=== PATIENT | male | born 1995 | race American Indian/Alaskan Native ===

== ENCOUNTER 2018-01-11 07:38 | Outpatient (CLI) | payer BC ==
--- NOTE | 2018-01-11 11:45 | Cat Scan Report ---
CT ANGIO ABD/FEMORAL ABD AORTA: HISTORY: Arteriovenous malformation, hereditary lymphedema, venous insufficiency. TECHNIQUE: Helical CT imaging with 1.25mm reconstructions following IV contrast. Sagittal and Coronal 2D reformatted images. 3 dimensional volume rendering technique. Stenosis was measured using NASCET criteria. COMPARISON: none. FINDINGS: ABDOMINAL AORTA: Widely patent with no significant disease. Less than 20% stenosis. The celiac axis, SMA, MARY and bilateral single renal arteries are widely patent with less than 20% stenosis. COMMON ILIAC ARTERIES: Less than 20% stenosis. EXTERNAL ILIAC ARTERIES: Less than 20% stenosis. INTERNAL ILIAC ARTERIES: Less than 20% stenosis. RIGHT LOWER EXTREMITY: There is diffuse subcutaneous edema throughout the right lower extremity. The femoral artery, popliteal artery and arterial structures distal to the knee are widely patent with less than 20% stenosis. LEFT LOWER EXTREMITY: Less than 20% stenosis throughout. IMPRESSION: Normal CTA of the abdominal aorta and bilateral femoral runoff. No arterial abnormality is detected. Diffuse subcutaneous edema throughout the right lower extremity.
== END 2018-01-11 07:39 | disposition home or self-care (01) ==
LOC: EDSEX 07:38 → CT 07:38
PROVIDERS: ATTEND Radiology Diagnostic Radiology
DX: I87.2 Venous insufficiency (chronic) (peripheral) (principal); Q27.30 Arteriovenous malformation, site unspecified; Q82.8 Other specified congenital malformations of skin; Q82.0 Hereditary lymphedema; Z72.0 Tobacco use
CPT/HCPCS: 75635; Q9967

== ENCOUNTER 2018-02-17 08:36 | Day surgery (SDC) | payer BC ==
[~2018-02-17 08:36] MED LIST: ANCEF/STERILE WATER 2 GM/20 ML 2 GM/20 ML SYRINGE IV NR; NACL 0.9% 1000 ML 1,000 ML IV SCH
[2018-02-17 09:22] LABS: Basophils % (Auto) 0.4 % (0.0-1.8); Eosinophils # (Auto) 0.2 K/mm3 (0.0-0.4); Eosinophils % (Auto) 2.5 % (0.0-4.3); Hematocrit 44.4 % (35.5-45.6); Hemoglobin 15.2 gm/dl (11.8-15.2); Lymphocytes # (Auto) 2.1 K/mm3 (1.2-5.4); Lymphocytes % (Auto) 25.6 % (13.4-35.0); Mean Corpuscular HGB Conc 34 % (32-34); Mean Corpuscular Hemoglobin 32 pg (28-32); Mean Corpuscular Volume 93 fl (84-94); Monocytes # (Auto) 0.8 K/mm3 (0.0-0.8); Monocytes % (Auto) 9.6 % (0.0-7.3); Platelet Count 204 K/mm3 (140-440); Red Blood Count 4.76 M/mm3 (3.65-5.03)
[2018-02-17 09:34] LABS: BUN/Creatinine Ratio 18; Blood Urea Nitrogen 16 mg/dL (9-20); Calcium 8.6 mg/dL (8.4-10.2); Hemolysis Index 38
[2018-02-17 09:43] LABS: Partial Thromboplastin Time 30.5 Sec. (24.2-36.6)
[2018-02-17] MEDS ORDERED: HEPARIN/NS 5000 UNIT/500ML(CATH LAB) 1,000 ML IR ONE (10:45)
[2018-02-17] MEDS ORDERED: SUBLIMAZE ONE (10:45)
[2018-02-17] MEDS ORDERED: HEPARIN 10,000 UNITS/10 ML ONE (10:45)
[2018-02-17] MEDS ORDERED: VERSED ONE (10:45)
[2018-02-17] MEDS ORDERED: NACL 0.9% 500 ML 500 ML ONE (10:47)
[2018-02-17] MEDS: XYLOCAINE 2% INFILTRATI ONE ×2 (11:03→11:10)
--- NOTE | 2018-02-17 11:27 | Short Stay Summary ---
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 H&P: obtained from office - Allergies and Medications Current Medications: Allergies No Known Allergies Allergy (Verified 02/15/18 15:56) Home Medications Medication Instructions Recorded Confirmed Last Taken Type No Known Home Medications [No 02/17/18 02/17/18 Unknown History Reported Home Medications] Active Medications Cefazolin Sodium (Ancef/Sterile Water 2 Gm/20 Ml) 2 gm in 20 mls @ 80 mls/hr IV PREOP NR; Protocol Stop: 02/17/18 23:00 Sodium Chloride (Nacl 0.9% 1000 Ml) 1,000 mls @ 42 mls/hr IV DIRECT DEEP - Brief post op/procedure progress note Date of procedure: 02/17/18 Pre-op diagnosis: asymmetric right leg swelling with hypervascular mass in right groin Post-op diagnosis: same Procedure: Right lower extremity angiography, right lower extremity venography Anesthesia: local Surgeon: NIKOLAI KLEIN Estimated blood loss: none Pathology: none Condition: stable - Disposition Condition at discharge: Good Disposition: DC-[id number] TO HOME OR SELFCARE Short Stay Discharge Plan Activity: advance as tolerated Weight Bearing Status: Weight Bear as Tolerated Diet: regular Wound: keep clean and dry, per your surgeon's advice Follow up with: PRIMARY CAREMD [Primary Care Provider] - 7 Days
--- NOTE | 2018-02-17 11:32 | Operative Report ---
Operative Report Operative Report: Exam: Right lower extremity angiography, right lower extremity venography Clinical indication: Patient with hypervascular mass in his right groin causing extrinsic compression of the his venous system and asymmetric right leg swelling Date: 02/17/2018 Procedure: Following an explanation of the risks, benefits and alternatives; written informed consent was obtained. The patient was brought to the injury graphic suite and placed in supine position on the examination table. Initial ultrasound evaluation of his left groin demonstrated a patent left common femoral artery. The patient's left groin was prepped and draped in the usual sterile fashion. 1% lidocaine was used for anesthesia Under ultrasound guidance, the left common femoral artery was cannulated with a 7 cm 21-gauge needle. A 0.018 guidewire was advanced centrally. The needle was removed and a micro-sheath placed. The 0.018 guidewire was exchanged for a 0.035 guidewire and the micro-sheath exchanged for a 5 Guinean vascular sheath. 5 Guinean Omni flush catheter was advanced over the guidewire to the distal abdominal aorta. Angiography was performed for anatomic localization. The aorta, bilateral common iliac and bilateral external iliac arteries are widely patent. The bifurcation was crossed using the Omni flush catheter and the Omni flush catheter advanced into the right external iliac artery. Angiography was performed at multiple obliquities in the region of interest in the right groin. The superficial femoral artery and profunda are normal in appearance. No feeding vessels to the presumed arterial venous malformation in the right groin or then applied. The 0.035 guidewire was advanced through the Omni flush catheter and Omni flush catheter removed. Attention was then turned to the venous system. Ultrasound evaluation of the left groin and proximal left leg demonstrated a patent left femoral vein. Patient's left groin proximal leg were prepped and draped in the usual sterile fashion. 1% lidocaine was used for anesthesia. Under ultrasound guidance, a 7 cm 18-gauge needle was advanced into the proximal left femoral vein. A 0.035 guidewire was advanced centrally. The needle was removed and a 5 Guinean sheath placed over the guidewire. A 12 mm occlusion with balloon was then placed over the guidewire into the right external iliac vein. Venography was performed however, the occlusion balloon was insufficiently sized and 5 Guinean sheath had to be upsized to a 7 Guinean sheath with the placement of a 14 mm occlusion balloon. Additional venography was performed with reflux views into the common femoral vein and femoral vein proximally and mid. Additionally, the deep femoral vein was also visualized. There is no connection to the presumed arterial venous malformation identified. At this point, the venous sheath was removed and hemostasis achieved using manual compression and a sterile compression dressing was applied. The arterial sheath was removed and hemostasis achieved using an Angio-Seal arterial closure device. A sterile compression dressing was applied. The patient tolerated the procedure well. There were no immediate post procedure complications. Conscious sedation was performed under the guidance of radiologic nursing. Continuous cardiopulmonary monitoring was utilized. Impression: 1) Right lower extremity arterial angiography demonstrating no communication with the presumed arterial venous malformation in the patient's right groin. 2) Right lower extremity venography demonstrating no communication with the presumed arterial venous malformation in the patient's left groin. 3) The patient will need further evaluation with an MRI of his pelvis and proximal right leg.
[2018-02-17] MEDS ORDERED: PERCOCET 5/325 PO ONE (12:42)
[2018-02-17 14:29] VITALS: BP 101/41
== END 2018-02-17 14:15 | disposition home or self-care (01) ==
LOC: CATHLABREC 08:36
PROVIDERS: ATTEND Radiology Diagnostic Radiology
DX: I87.2 Venous insufficiency (chronic) (peripheral) (principal); F17.210 Nicotine dependence, cigarettes, uncomplicated; Z79.01 Long term (current) use of anticoagulants
CPT/HCPCS: 36012; 36246; 36415; 75710; 75820; 76937; 80048; 85025; 85610; 85730; C1725; C1760; C1887; C1894; J1644; J2250; J3010; J7040; Q9967

== ENCOUNTER 2018-03-07 09:54 | Emergency (ER) | payer BC ==
[2018-03-07] MEDS ORDERED: NACL 0.9% 1000 ML 1,000 ML IV ONE (10:42)
[2018-03-07] MEDS ORDERED: DILAUDID IV ONE (10:42)
[2018-03-07] MEDS ORDERED: ZOFRAN IV ONE (10:42)
--- NOTE | 2018-03-07 10:47 | Emergency Department Report ---
Blank Doc - Documentation Documentation: Patient is 22 years old male with recent history of lower extremity angiography by Dr. Martinez. Patient have history of right groin vascular mass that causing right lower extremity swelling. Patient today presented to the ER complaining of severe abdominal pain that started this morning patient is unable to stay still in the exam room because of the pain. He denied any nausea or vomiting or diarrhea. Patient also denied any fever. I ordered the labs, CT abdomen and pelvis, pain medicine and nausea medicine and patient will need to be treated in our main ED.,
[2018-03-07 11:11] LABS: Basophils % (Auto) 0.2 % (0.0-1.8); Eosinophils % (Auto) 0.3 % (0.0-4.3); Hematocrit 43.1 % (35.5-45.6); Hemoglobin 15.2 gm/dl (11.8-15.2); Lymphocytes # (Auto) 1.4 K/mm3 (1.2-5.4); Mean Corpuscular HGB Conc 35 % (32-34); Mean Corpuscular Hemoglobin 33 pg (28-32); Mean Corpuscular Volume 93 fl (84-94); Monocytes # (Auto) 0.7 K/mm3 (0.0-0.8); Monocytes % (Auto) 6.2 % (0.0-7.3); Platelet Count 224 K/mm3 (140-440); Red Blood Count 4.63 M/mm3 (3.65-5.03); Red Cell Distribution Width 12.9 % (13.2-15.2)
--- NOTE | 2018-03-07 11:16 | Emergency Department Report ---
HPI - General Chief Complaint: Abdominal Pain Time Seen by Provider: 03/07/18 10:35 - HPI HPI: Room 18 The patient is a 22-year-old male presenting with chief complaint of abdominal pain chest pain. The patient states he awakened this morning at 06:00 the pain from the suprapubic region radiating to the chest. Patient describes the pain is pushing in nature and constant. Patient states he thought he had a bowel movement but did not have one he went to the bathroom. The patient states he went to work but was sent home. The patient states when he arrived home his brought him to the emergency department for further evaluation. Patient denies any history of fever or other pain. Patient gives his pain a score of 9/ 10 Location: [See above] Duration: Onset Upon awakening at 06:00 Quality: Pushing Severity: 9/10 Modifying factors: [see above] Context: [see above] Mode of transportation: [not driving] ED Past Medical Hx - Past Medical History Previous Medical History?: Yes Additional medical history: right leg blockage - Surgical History Past Surgical History?: No - Family History Family history: no significant - Social History Smoking Status: Current Some Day Smoker Substance Use Type: Marijuana - Medications Home Medications: Home Medications Medication Instructions Recorded Confirmed Last Taken Type oxyCODONE /ACETAMINOPHEN [Percocet 1 tab PO Q6HR PRN #18 tablet 02/17/18 Unknown Rx 5/325] Famotidine [Pepcid] 20 mg PO BID #20 tablet 03/07/18 Unknown Rx traMADol [Ultram] 50 mg PO Q6HR PRN #14 tablet 03/07/18 Unknown Rx ED Review of Systems ROS: Stated complaint: LOWER ABDOMEN PAIN/SURGERY Other details as noted in HPI Constitutional: denies: fever Eyes: denies: eye pain ENT: denies: throat pain Respiratory: no symptoms reported Cardiovascular: chest pain Endocrine: denies: unexplained weight loss Gastrointestinal: abdominal pain Genitourinary: denies: dysuria Musculoskeletal: denies: back pain Skin: denies: change in color Neurological: denies: headache Physical Exam - Physical Exam Vital Signs: Vital Signs 03/07/18 10:19 Temperature 97.6 F Pulse Rate 54 L Respiratory 16 Rate Blood Pressure 121/45 O2 Sat by Pulse 100 Oximetry Physical Exam: GENERAL: The patient is well-developed well-nourished male lying on stretcher not appearing to be in acute distress. [] HEENT: Normocephalic. Atraumatic. Extraocular motions are intact. Patient has moist mucous membranes. NECK: Supple. Trachea midline CHEST/LUNGS: Clear to auscultation. There is no respiratory distress noted. HEART/CARDIOVASCULAR: Regular. There is no tachycardia. There is no gallop rub or murmur. ABDOMEN: Abdomen is soft, with mild discomfort to palpation in the left lower quadrant and left upper quadrant. Patient has normal bowel sounds. There is no abdominal distention. SKIN: There is no rash. There is no edema. There is no diaphoresis. NEURO: The patient is awake, alert, and oriented. The patient is cooperative. The patient has normal speech MUSCULOSKELETAL: There is no CVA tenderness bilaterally. There is no evidence of acute injury. ED Course Vital Signs 03/07/18 10:19 Temperature 97.6 F Pulse Rate 54 L Respiratory 16 Rate Blood Pressure 121/45 O2 Sat by Pulse 100 Oximetry ED Medical Decision Making - Lab Data Result diagrams: 03/07/18 10:50 03/07/18 10:50 - EKG Data -: EKG Interpreted by Or EKG shows normal: sinus rhythm Rate: bradycardia (56 bpm) - EKG Data When compared to previous EKG there are: previous EKG unavailable Interpretation: other (early repolarization) - Radiology Data Radiology results: report reviewed (CT chest, CT abdomen and pelvis), image reviewed (CT chest, CT abdomen and pelvis) Findings [facility] [address] [place] [address] Cat Scan Report Signed Patient: BRANDO PHILIPPE MR#: [id number] : 1994 Acct:[id number] Age/Sex: 22 / M ADM Date: 03/07/18 Loc: ED Attending Dr: Ordering Physician: DEYVI SUAREZ MD Date of Service: 03/07/18 Procedure(s): CT angio chest Accession Number(s): [id number] cc: DEYVI SUAREZ MD FINAL REPORT EXAM: CT ANGIO CHEST HISTORY: pleurisy TECHNIQUE: CT angiography of the chest was performed. 100 cc Omnipaque 350 IV was administered. Axial images and coronal and sagittal reformatted images and rotational MIP images were obtained. PRIORS : None. FINDINGS: There is no aortic dissection seen. There are no filling defects seen within the pulmonary arterial circulation to suggest pulmonary embolism. There is no significant mediastinal or hilar mass seen. There are no pleural effusions seen. There is a 3 mm nodule in the right lung apex, series 5 image 14. There is a 2 mm subpleural nodule in the right upper lobe, series 5, image 36. There is an additional 3 mm nodule in the right lower lobe abutting the major fissure, series 5, image 74. Another 3 mm right lower lobe nodule abutting major fissure seen on series 5, image 63 a 3.5 mm subpleural nodule seen in left lower lobe series 5 image 74. There are no acute infiltrates seen. IMPRESSION: There is no pulmonary embolism or aortic dissection seen. At least 5 very small peripheral nodules seen, largest measuring about 3.5 mm. These are of doubtful significance. As precaution recommend 12 month follow-up. Transcribed By: LEATHA Dictated By: JEANETTE BRISENO MD Electronically Authenticated By: JEANETTE BRISENO MD Signed Date/Time: 03/07/18 1236 DD/DT : 03/07/18 1236 TD/TT: 03/07/18 1236 Findings [facility] [address] [place] [address] Cat Scan Report Signed Patient: BRANDO PHILIPPE MR#: [id number] : 1994 Acct:[id number] Age/Sex: 22 / M ADM Date: 03/07/18 Loc: ED Attending Dr: Ordering Physician: NINA MARTINEZ Date of Service: 03/07/18 Procedure(s): CT abdomen pelvis w con Accession Number(s): [id number] cc: NINA MARTINEZ FINAL REPORT EXAM: CT ABDOMEN PELVIS W CON HISTORY: abdominal pain TECHNIQUE: CT abdomen and pelvis performed. Images extend from diaphragm to pubic symphysis. 100 cc Omnipaque 350 IV was administered. Axial images and coronal and sagittal reformatted images were obtained. PRIORS: None. FINDINGS: There is a small nodule in each lower lobe measuring less than 4 mm. These are discussed on separate CT chest report. The visualized liver, spleen, pancreas, adrenal glands and kidneys demonstrate no significant abnormalities. There is no abdominal aortic aneurysm. There is no evidence of intestinal obstruction. The appendix is normal. There are no abnormal fluid collections seen. There is no free intraperitoneal air. The bladder is unremarkable. There is no abnormal pelvic mass or fluid collections seen. IMPRESSION: There is no acute abnormality seen in the abdomen or pelvis. Transcribed By: LEATHA Dictated By: JEANETTE BRISENO MD Electronically Authenticated By: JEANETTE BRISENO MD Signed Date/Time: 03/07/181239 DD/ 39 TD/TT: 03/07/181239 - Differential Diagnosis renal colic, PE, gastritis, splenic infarct, Critical care attestation.: If time is entered above; I have spent that time in minutes in the direct care of this critically ill patient, excluding procedure time. ED Disposition Clinical Impression: Acute abdominal pain Disposition: TO HOME OR SELFCARE Is pt being admited?: No Does the pt Need Aspirin: No Condition: Stable Instructions: Acute Abdominal Pain (ED) Additional Instructions: Return to the emergency department immediately should you develop worsening symptoms, fever, inability to tolerate food or liquid or any other concerns. Prescriptions: Famotidine [Pepcid] 20 mg PO BID #20 tablet traMADol [Ultram] 50 mg PO Q6HR PRN #14 tablet PRN Reason: Pain Referrals: PRIMARY CAREMD [Primary Care Provider] - 3-5 Days SHANTE TORRES MD [Staff Physician] - 3-5 Days (Dr. Torres is a primary physician. Please follow up with him to be established as a patientand for further evaluation of your pulmonary nodules) HELADIO MITCHELL MD [Staff Physician] - 3-5 Days (Dr. Mitchell is a track and field coach. Please follow-up with him for further evaluation) DANNY JIMENEZ MD [Staff Physician] - 3-5 Days (Dr. Jimenez is a beef pluck trimmer. Please follow up with her for further evaluation) Time of Disposition: 13:24
[2018-03-07 11:21] LABS: INR 0.92 (0.87-1.13)
[2018-03-07 11:23] LABS: Alanine Aminotransferase 14 units/L (7-56); Albumin 4.2 g/dL (3.9-5); BUN/Creatinine Ratio 13; Blood Urea Nitrogen 13 mg/dL (9-20); Calcium 9.1 mg/dL (8.4-10.2); Hemolysis Index 19; Lipase 17 units/L (13-60)
[2018-03-07 11:32] LABS: Bilirubin,Direct < 0.2 mg/dL (0-0.2)
[2018-03-07 11:38] VITALS: BP 127/70
[2018-03-07 12:13] LABS: Bilirubin,Urine NEG (Negative); Blood,Urine NEG (Negative); Color,Urine Yellow (Yellow); Mucus,Urine 3+ /HPF; Protein,Urine <15 mg/dL mg/dL (Negative)
--- NOTE | 2018-03-07 12:43 | Cat Scan Report ---
FINAL REPORT EXAM: CT ANGIO CHEST HISTORY: pleurisy TECHNIQUE: CT angiography of the chest was performed. 100 cc Omnipaque 350 IV was administered. Axial images and coronal and sagittal reformatted images and rotational MIP images were obtained. PRIORS: None. FINDINGS: There is no aortic dissection seen. There are no filling defects seen within the pulmonary arterial circulation to suggest pulmonary embolism. There is no significant mediastinal or hilar mass seen. There are no pleural effusions seen. There is a 3 mm nodule in the right lung apex, series 5 image 14. There is a 2 mm subpleural nodule in the right upper lobe, series 5, image 36. There is an additional 3 mm nodule in the right lower lobe abutting the major fissure, series 5, image 74. Another 3 mm right lower lobe nodule abutting major fissure seen on series 5, image 63 a 3.5 mm subpleural nodule seen in left lower lobe series 5 image 74. There are no acute infiltrates seen. IMPRESSION: There is no pulmonary embolism or aortic dissection seen. At least 5 very small peripheral nodules seen, largest measuring about 3.5 mm. These are of doubtful significance. As precaution recommend 12 month follow-up.
--- NOTE | 2018-03-07 12:47 | Cat Scan Report ---
FINAL REPORT EXAM: CT ABDOMEN PELVIS W CON HISTORY: abdominal pain TECHNIQUE: CT abdomen and pelvis performed. Images extend from diaphragm to pubic symphysis. 100 cc Omnipaque 350 IV was administered. Axial images and coronal and sagittal reformatted images were obtained. PRIORS: None. FINDINGS: There is a small nodule in each lower lobe measuring less than 4 mm. These are discussed on separate CT chest report. The visualized liver, spleen, pancreas, adrenal glands and kidneys demonstrate no significant abnormalities. There is no abdominal aortic aneurysm. There is no evidence of intestinal obstruction. The appendix is normal. There are no abnormal fluid collections seen. There is no free intraperitoneal air. The bladder is unremarkable. There is no abnormal pelvic mass or fluid collections seen. IMPRESSION: There is no acute abnormality seen in the abdomen or pelvis.
[2018-03-07] MEDS ORDERED: SUBLIMAZE IV ONE (12:55)
[2018-03-07] MEDS ORDERED: LIDOCAINE VISCOUS 2% PO ONE (12:55)
[2018-03-07] MEDS ORDERED: PEPCID IV ONE (12:55)
[2018-03-07] MEDS ORDERED: ALUM-MAG HYDROX-SIMETH 200-200-20MG/5ML PO ONE (12:55)
== END 2018-03-07 13:30 | disposition home or self-care (01) ==
LOC: ED 09:54
DX: R10.32 Left lower quadrant pain (principal); R10.12 Left upper quadrant pain; R91.1 Solitary pulmonary nodule; F17.200 Nicotine dependence, unspecified, uncomplicated; F12.10 Cannabis abuse, uncomplicated
CPT/HCPCS: 36415; 71275; 74177; 80048; 80074; 81001; 83690; 84484; 85025; 85610; 93005; 93010; 96374; 96375; 99284; J1170; J2405; J3010; J7030; Q9967